=== PATIENT | male | born 1990 | race Caucasian/White ===

== ENCOUNTER → 2018-05-13 | Outpatient (CLI) | payer OTHER ==
[~2018-05-13] MED LIST: MULT-506 PO
[2018-05-13 17:26] LABS: ALBUMIN 4.2 gm/dl (3.4-5.0); ALKALINE PHOSPHATASE 45 U/L (45-117); ALT/SGPT 85 U/L (12-78); AST/SGOT 52 U/L (15-37); BLOOD UREA NITROGEN 11 mg/dl (7-18); CARBON DIOXIDE 26 mmol/L (21-32); CREATININE 1.22 mg/dl (0.60-1.40); GLUCOSE 102 mg/dl (70-99); POTASSIUM 4.2 mmol/L (3.5-5.1); SODIUM 139 mmol/L (136-145); TOTAL PROTEIN 7.6 gm/dl (6.4-8.2); TRANSFERRIN 276 mg/dl (200-360)
[2018-05-13 18:09] LABS: HEP C IGG 13 YRS+OLDER_RFLX NEG (NEG)
[2018-05-15 04:03] LABS: HEPATITIS A IGM TC 51813E NON-REACTIVE (NON-REACTIVE); HEPATITIS B CORE IGM TC51854R NON-REACTIVE (NON-REACTIVE)
== END | disposition home or self-care (01) ==
LOC: C.LABBC 12:02
PROVIDERS: ATTEND Nurse Practitioner Adult Health
DX: Z11.3 Encounter for screening for infections with a predominantly sexual mode of transmission (principal); R79.89 Other specified abnormal findings of blood chemistry; R94.5 Abnormal results of liver function studies

== ENCOUNTER → 2018-05-21 | Outpatient (CLI) | payer OTHER ==
--- NOTE | 2018-05-21 12:23 | DIAGNOSTIC IMAGING REPORT ---
ULTRASOUND RIGHT UPPER QUADRANT ABDOMEN CLINICAL HISTORY: Elevated hepatic transaminases. COMPARISON STUDY: No priors. TECHNIQUE: Real-time, grayscale, and color flow sonography of the right upper quadrant of the abdomen was performed. Images are reviewed in the transverse and longitudinal planes. FINDINGS: Liver: The liver is enlarged and demonstrates heterogeneously increased echotexture consistent with severe hepatic steatosis. Note that this degrades acoustic penetration of the liver. Fatty sparing is seen adjacent to the gallbladder fossa. There is no intrahepatic biliary ductal dilatation. The main portal vein is patent. Gallbladder: The gallbladder is normal in appearance. No gallstones are identified. There is no gallbladder wall thickening or pericholecystic fluid. A sonographic Martell's sign is reportedly absent. The common bile duct measures up to 0.4 cm in diameter. Pancreas: Visualized portions of the pancreatic head and body are normal in appearance. Right kidney: Survey images of the right kidney demonstrate normal size and echotexture. There is no hydronephrosis. Ascites: None. IMPRESSION: 1. Hepatomegaly and hepatic steatosis. 2. No gallstones are identified. Electronically signed by: Riley Dodd M.D. 05/21/2018 12:22 PM Dictated Date/Time: 05/21/2018 12:21 PM
== END | disposition home or self-care (01) ==
LOC: C.ULTRBC 11:13
PROVIDERS: ATTEND Nurse Practitioner Adult Health
DX: R94.5 Abnormal results of liver function studies (principal); R16.0 Hepatomegaly, not elsewhere classified; K76.0 Fatty (change of) liver, not elsewhere classified